=== PATIENT | female | born 1945 | race Caucasian/White ===

== ENCOUNTER 2022-10-13 10:15 | Outpatient (RCR) | payer MEDICARE, SELFPAY | END 2022-12-10 16:31 | disposition home or self-care (01) | LOC: PT 10:15 | DX: I63.9 Cerebral infarction, unspecified (principal) | CPT/HCPCS: 97010; 97110; 97112; 97530 ==

== ENCOUNTER 2022-10-13 10:16 | Outpatient (RCR) | payer MEDICARE, SELFPAY | END 2022-12-10 16:32 | disposition home or self-care (01) | LOC: OT 10:16 | DX: I63.9 Cerebral infarction, unspecified (principal) | CPT/HCPCS: 97530 ==

== ENCOUNTER 2022-12-14 08:12 | Outpatient (OUT) | payer MEDICARE, SELFPAY | END 2022-12-14 08:13 | disposition home or self-care (01) | LOC: LAB 08:15 | PROVIDERS: PCP Family Medicine; Visit Provider Family Medicine | DX: D64.9 Anemia, unspecified (principal) | CPT/HCPCS: 36415; 82728; 83540 ==

== ENCOUNTER 2023-01-17 08:41 | Outpatient (OUT) | payer MEDICARE, SELFPAY ==
[2023-01-17 09:42] LABS: Percent Iron Saturation 14.6 %
== END 2023-01-17 08:42 | disposition home or self-care (01) ==
LOC: LAB 08:43
PROVIDERS: PCP Family Medicine; Visit Provider Family Medicine
DX: D64.9 Anemia, unspecified (principal)
CPT/HCPCS: 36415; 82728; 83540; 83550

== ENCOUNTER 2023-02-08 12:04 | Outpatient (OUT) | payer MEDICARE, SELFPAY ==
[2023-02-08 12:42] LABS: Basophils Percent Auto 0.8 % (0.2-2.0); Eosinophils Absolute Auto 0.1 10^3/uL (0.0-0.7); Eosinophils Percent Auto 2.1 % (0.9-7.0); Hematocrit 38.1 % (36.0-48.0); Hemoglobin 11.9 g/dL (12.0-16.0); Immature Granulocytes Abs Auto 0.01 10^3/uL (0.00-0.03); Immature Granulocytes Pct Auto 0.2 % (0.0-0.5); Lymphocytes Absolute Auto 1.6 10^3/uL (1.2-3.8); Lymphocytes Percent Auto 30.8 % (20.5-60.0); Mean Corpuscular HGB Conc 31.2 g/dL (29.9-35.2); Mean Corpuscular Volume 89.6 fL (81.0-99.0); Mean Platelet Volume 10.3 fL (9.5-13.5); Monocytes Absolute Auto 0.4 10^3/uL (0.3-0.8); Neutrophils Percent Auto 58.1 % (43.0-75.0); Platelet Count 219 10^3/uL (150-450); Red Blood Count 4.25 10^6/uL (4.20-5.40); Red Cell Distribution Width 14.3 % (11.0-15.0); White Blood Count 5.2 10^3/uL (4.0-11.0)
== END 2023-02-08 12:05 | disposition home or self-care (01) ==
LOC: LAB 12:07
PROVIDERS: PCP Family Medicine; Visit Provider Family Medicine
DX: D64.9 Anemia, unspecified (principal); E03.9 Hypothyroidism, unspecified
CPT/HCPCS: 36415; 83550; 84443; 85025

== ENCOUNTER 2025-02-18 15:59 | Outpatient (OUT) | payer MEDICARE, SELFPAY ==
--- OUTSIDE RECORDS SUMMARY | 2025-02-18 16:04 | XMS_ITS | Encounter Summary ---
Author Organization [facility] Address [address] [place] [address] Care Team Providers Care Lead Teacher Name Role Phone Antoni Conner MD Primary Care Provider + [phone] Encounter Details Date Type Department Care Team (Late st Contact Info) Description 08/16/2024 External Result Encounter [facility] External Department Unsolicited Bear Hayes MD 703 [facility] [address] [place] [address] Social History Tobacco Use Types Packs/Day Years Used Date Smoking Tobacco: Never Assessed Comments Unknown Sex and Gender Information Value Date Recorded Sex Assigned at Not on file Legal Sex Female 6:39 PM EDT Gender Identity Not on file Sexual Orientation Not on file documented as of this encounter Plan of Treatment Not on file documented as of this encounter Procedures Procedure Name Priority Date/Time Associated Diagnosis Comments XR ABDOMEN 2 VIEW 08/16/2024 9:1 1 AM EDT documented in this encounter Results * XR ABDOMEN 2 VIEW (08/16/2024 9:11 AM EDT) Anatomical Region Laterality Modality Abdomen Radiographic Martha ging 08/16/2024 9:11 AM EDT Impressions 08/16/2024 9:16 AM EDT AIR-FLUID LEVELS ARE SEEN WITHIN THE RIGHT COLON. NO SMALL BOWEL DILATATION IS SEEN. Impression dictated by: Ismael Mandujano Jr. D.ORichard08/16/2024 9:14 AM Dictation Location: [facility]--23 Transcribed By: CHARLOTTE 08/16/24 0914 Dictated By: Ismael Mandujano Jr, DO 08/16/24 0911 Signed By: <Electronically signed by Ismael Mandujano Jr, DO in OV> 08/16/24 0914 Narrative 08/16/2024 9:16 AM EDT [place] [id number] XRay Report Signed Patient: Kayli Conner MR#: [id number] 865 : 1945 Acct:[id number] Age/Sex: 79 / F ADM Date: 08/14/24 Loc: 4N Room: [address] [place] [address] Type: ADM IN Attending Dr: Maribeth Doll MD Copies to: MD Maribeth Chapa MD Ordering Provider: Bear Hayes MD Date of Service: 08/16/24 XR/XR abdomen min 2V: Bowel obstruction ABDOMEN 2 VIEWS: CLINICAL INFORMATION: Bowel movement today. Abdominal pain. COMPARISON: KUB 08/14/2024 FINDINGS: Enteric tubes in satisfactory position. Nonspecific bowel gas pattern. There appears be air-fluid levels within the presumed right colon. No free air. Osseous structures demonstrate degenerative change. XR/XR abdomen min 2V Procedure Note Ismael Mandujano Jr., MD - 08/16/[address] [address] XRay Report Signed Patient: Kayli Conner MMR#: [id number] 865 : 8Acct:[id number] Age/Sex: 79 / FADM Date: 08/14/24 Loc: 4N Room: [id number]: ADM IN Attending Dr: Maribeth Doll MD Copies to: MD Maribeth Chapa MD Ordering Provider: Bear Hayes MD Date of Service: 08/16/24 XR/XR abdomen min 2V: Bowel obstruction ABDOMEN 2 VIEWS: CLINICAL INFORMATION: Bowel movement today. Abdominal pain. COMPARISON: KUB 08/14/2024 FINDINGS: Enteric tubes in satisfactory position. Nonspecific bowel gaspattern. There appears be air-fluid levels within the presumed right colon. No free air. Osseousstructures demonstrate degenerative change. XR/XR abdomen min 2V IMPRESSION: AIR-FLUID LEVELS ARE SEEN WITHIN THE RIGHT COLON. NO SMALL BOWELDILATATION IS SEEN. Impression dictated by: Ismael Mandujano Jr., D.O.08/16/2024 9:14 AM Dictation Location: [facility]--23 Transcribed By: [facility] 08/16/24 0914 Dictated By: Ismael Mandujano Jr, DO 08/16/24 0911 Signed By: <Electronically signed by Ismael Mandujano Jr, DO inOV> 08/16/24 0914 us Bear Rossi MD IMG XR PROCEDURES Final Resu lt documented in this encounter Visit Diagnoses Not on filedocumented in this encounter Care Teams Lead Teacher Relationship Specialty Start Date End Date Antoni Conner MD [address] [place] [address] PCP - General Family Medicine 12/27/22 documented as of this encounter
--- OUTSIDE RECORDS SUMMARY | 2025-02-18 16:04 | XMS_ITS | Encounter Summary ---
Author Organization [facility] Address [address] [place] [address] Phone Care Team Providers Care Children'S Author Name Role Phone Ubaldo Antoni B DO Primary Care Provider Encounter Details Date Type Department Care Team (Late st Contact Info) Description 12/19/2022 Scanned Document [facility] [[email or web address]] LEGAC[facility] [address] [place] [address] Conversion, Onbase Social History Tobacco Use Types Packs/Day Years Used Date Smoking Tobacco: Never Assessed Comments Unknown Sex and Gender Information Value Date Recorded Sex Assigned at Not on file Legal Sex Female 8:35 PM EST Gender Identity Not on file Sexual Orientation Not on file documented as of this encounter Plan of Treatment Not on file documented as of this encounter Procedures Procedure Name Priority Date/Time Associated Diagnosis Comments ECHOCARDIOGRAM 12/19/2022 documented in this encounter Results * ECHOCARDIOGRAM (12/19/2022) Narrative 12/19/2022 Ordered by an unspecified provider. us Onbase Conversion CV ECHO PROCEDURES Final Resul t documented in this encounter Visit Diagnoses Not on filedocumented in this encounter Care Teams Children'S Author Relationship Specialty Start Date End Date Antoni Conner DO PCP - General 08/20/10 documented as of this encounter
--- OUTSIDE RECORDS SUMMARY | 2025-02-18 16:04 | XMS_ITS | Clinical Summary ---
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 Fecal smearing 05/31/2011 Fecal urgency 05/31/2011 Social History Tobacco Use Types Packs/Day Years Used Date Smoking Tobacco: Never Assessed Comments Unknown Sex and Gender Information Value Date Recorded Sex Assigned at Not on file Legal Sex Female 9:00 AM EST Gender Identity Not on file Sexual Orientation Not on file Plan of Treatment Health Maintenance Due Date Last Done Comments Anxiety Screening 08/08/1965 Depression Screening 08/08/1965 Hepatitis C Screening 08/08/1965 DTaP,Tdap,Td Vaccine (1 - Tdap) 08/08/1966 Diabetes Screening 08/08/1992 Pneumococcal Vaccine: 50+ (1 of 1 - PCV) 08/08/1997 Shingrix Vaccine (1 of 2) 08/08/1997 Bone Density Screening 08/08/2012 RSV Vaccine (1 - 1-dose 75+ series) 08/08/2022 Advance Directive Discussion 05/15/2024 Influenza Vaccine (#1) 2025 Insurance BLUE PREFERRED EPO Member Subscriber Plan / Payer (Ef fective 2010-Present) Name:Kayli Conner Tomas Relation to Subscriber:Self Name:Ubaldo Kayli Marin Payer ID:[id number] (NAIC) Type:EPO Address: [address] [place] [id number] Care Teams Watch And Clock Repair Clerk Relationship Specialty Start Date End Date Saúl Cobos ([facility] [[email or web address] [address] [place] [address] PCP - General 08/21/00
--- OUTSIDE RECORDS SUMMARY | 2025-02-18 16:04 | XMS_ITS | Encounter Summary ---
Author Organization [facility] Address [address] [place] [address] Care Team Providers Care Dairy Manufacturing Technologist Name Role Phone Antoni Conner MD Primary Care Provider + [phone] Encounter Details Date Type Department Care Team (Late st Contact Info) Description 10/01/2023 External Result Encounter [facility] External Department Unsolicited Jose Pathak, DO 703 [facility] [address] [place] [address] Social History Tobacco Use Types [...] Priority Date/Time Associated Diagnosis Comments XR ABDOMEN 1 VIEW 10/01/2023 11: 51 AM EDT documented in this encounter Results * XR abdomen 1 view (10/01/2023 11:51 AM EDT) Anatomical Region Laterality Modality Abdomen Radiographic Martha ging 10/01/2023 11:5 1 AM EDT Impressions 10/01/2023 11:54 AM EDT NG TUBE IN SATISFACTORY POSITION. Impression dictated by: Ismael Mandujano Jr., D.O.10/01/2023 11:52 AM Dictation Location: [facility]-15 Transcribed By: CHARLOTTE 10/01/23 1152 Dictated By: Ismael Mandujano Jr, DO 10/01/23 1151 Signed By: <Electronically signed by Ismael Mandujano Jr, DO in OV> 10/01/23 1152 Narrative 10/01/2023 11:54 AM EDT [place] [id number] XRay Report Signed Patient: Kayli Conner MR#: [id number] 865 : 1945 Acct:[id number] Age/Sex: 78 / F ADM Date: 10/01/23 Loc: 4N Room: [address] [place] [address] Type: ADM IN Attending Dr: Minna Bryan MD Copies to: DO Minna Aguilar MD Ordering Provider: Jose Pathak DO Date of Service: 10/01/23 XR/XR abdomen 1V: Confirm NG placement KUB: CLINICAL INFORMATION: NG tube placement COMPARISON: KUB 10/01/2023 at 0330 hours FINDINGS: Interval advancement the patient's NG tube demonstrates that the tip and the side-port within the stomach. No free air. XR/XR abdomen 1V Procedure Note Radiology, Radiologist, - 10/01/[address] [address] XRay Report Signed Patient: Kayli Conner MMR#: [id number] 865 : 8Acct:[id number] Age/Sex: 78 / FADM Date: 10/01/23 Loc: 4 Room: [id number]: ADM IN Attending Dr: Minna Bryan MD Copies to: DO Minna Aguilar MD Ordering Provider: Jose Pathak DO Date of Service: 10/01/23 XR/XR abdomen 1V: Confirm NG placement KUB: CLINICAL INFORMATION: NG tube placement COMPARISON: KUB 10/01/2023 at 0330 hours FINDINGS: Interval advancement the patient's NG tube demonstrates that thetip and the side-port within the stomach. No free air. XR/XR abdomen 1V IMPRESSION: NG TUBE IN SATISFACTORY POSITION. Impression dictated by: Ismael Mandujano Jr., D.ORichard10/01/2023 11:52 AM Dictation Location: [facility] Transcribed By: [facility] 10/01/23 1152 Dictated By: Ismael Mandujano Jr, DO 10/01/23 1151 Signed By: <Electronically signed by Ismael Mandujano Jr, DO inOV> 10/01/23 1152 Jose Pathak DO IMG XR PROCEDURES Final R esult documented in this encounter Visit Diagnoses Not on filedocumented in this encounter Care Teams Dairy Manufacturing Technologist Relationship Specialty Start Date End Date Antoni Conner MD [address] [place] [address] PCP - General Family Medicine 12/27/22 documented as of this encounter
--- OUTSIDE RECORDS SUMMARY | 2025-02-18 16:04 | XMS_ITS | Encounter Summary ---
Author Organization [facility] Address [address] [place] [address] Care Team Providers Care Process Equipment Operator Name Role Phone Antoni Conner MD Primary Care Provider + [phone] Encounter Details Date Type Department Care Team (Latest Contact Info) Description 06/20/2024 Abstract [facility] EXT DEP Beto Mccabe, DO [address] [address] Social History Tobacco Use Types Packs/Day Years Used Date Smoking Tobacco: Never Assessed Comments Unknown Sex and Gender Information Value Date Recorded Sex Assigned at Not on file Legal Sex Female 6:39 PM EDT Gender Identity Not on file Sexual Orientation Not on file documented as of this encounter Plan of Treatment Not on file documented as of this encounter Visit Diagnoses Not on filedocumented in this encounter Care Teams Process Equipment Operator Relationship Specialty Start Date End Date Antoni Conner MD [address] [place] [address] PCP - General Family Medicine 12/27/22 documented as of this encounter
--- OUTSIDE RECORDS SUMMARY | 2025-02-18 16:04 | XMS_ITS | Clinical Summary ---
Author Organization [facility] Address [address] [place] [address] Phone Care Team Providers Care Finish Mill Operator Name Role Phone Antoni Conner DO Primary Care Provider Social History Tobacco Use Types Packs/Day Years Used Date Smoking Tobacco: Never Assessed Comments Unknown Sex and Gender Information Value Date Recorded Sex Assigned at Not on file Legal Sex Female 8:35 PM EST Gender Identity Not on file Sexual Orientation Not on file Plan of Treatment Health Maintenance Due Date Last Done Comments Lipid Panel 1945 Medicare Annual Wellness Vis it (AWV) 1945 Hepatitis C Screening 08/08/1965 DTaP/Tdap/Td Vaccines (1 - Tdap) 08/08/1969 Pneumococcal Vaccine (1 of 1 - PCV) 08/08/1997 Zoster Vaccines (1 of 2) 08/08/1997 Bone Density Scan 08/08/2012 RSV High Risk: (Elderly (60+ ) or Population) (1 - 1-dose 75+ series) 08/08/2022 COVID-19 Vaccine ( - 2023-2 5 season) 2025 Influenza Vaccine (#1) 2025 HIB Vaccines Aged Out No longer eligi ble based on patient's age to complete this topic HPV Vaccines Aged Out No longer eligi ble based on patient's age to complete this topic Hepatitis A Vaccines Aged Out No long er eligible based on patient's age to complete this topic Hepatitis B Vaccines Aged Out No long er eligible based on patient's age to complete this topic IPV Vaccines Aged Out No longer eligi ble based on patient's age to complete this topic Meningococcal Vaccine Aged Out No sabine darryl eligible based on patient's age to complete this topic Rotavirus Vaccines Aged Out No longer eligible based on patient's age to complete this topic Insurance [address] [place] [id number] [employer] MEDICARE ADVANTAGE Care Teams Finish Mill Operator Relationship Specialty Start Date End Date Antoni Conner DO PCP - General 08/20/10
--- OUTSIDE RECORDS SUMMARY | 2025-02-18 16:04 | XMS_ITS | Encounter Summary ---
Author Organization [facility] Address [address] [place] [address] Care Team Providers Care Whiskey Filterer Name Role Phone Antoni Conner MD Primary Care Provider + [phone] Encounter Details Date Type Department Care Team (Late st Contact Info) Description 06/22/2024 External Result Encounter [facility] External Department Unsolicited Beto Mccabe, DO [address] [facility] [address] [place] [address] Social History Tobacco Use Types Packs/Day Years [...] Associated Diagnosis Comments XR ABDOMEN 1 VIEW 06/22/2024 8:0 6 AM EST documented in this encounter Results * XR abdomen 1 view (06/22/2024 8:06 AM EST) Anatomical Region Laterality Modality Abdomen Radiographic Martha ging 06/22/2024 8:06 AM EST Impressions 06/22/2024 8:09 AM EST No radiographic evidence of bowel obstruction or free air. Impression dictated by: Papito Bai M.D.06/22/2024 8:06 AM Dictation Location: [place] [address] Transcribed By: [facility] 06/22/24805 Dictated By: Papito Bai II, MD 06/22/24805 Signed By: <Electronically signed by Papito Bai II, MD in OV> 06/22/24805 Narrative 06/22/2024 8:09 AM EST [address] [address] XRay Report Signed Patient: Kayli Conner MR#: [id number] 865 : 1945 Acct:[id number] Age/Sex: 78 / F ADM Date: 06/20/24 Loc: 3T Room: [address] [place] [address] Type: ADM IN Attending Dr: Agustina Moya MD Copies to: MD Beto Shaw DO Ordering Provider: Beto Mccabe DO Date of Service: 06/22/24 XR/XR KUB: bowel obstruction. must get by 6:00 am XR KUB 06/21/2024 1:00 PM SIGNS AND SYMPTOMS: bowel obstruction. must get by 6:00 am PROTOCOL: Frontal radiographs of the abdomen and pelvis COMPARISON: 06/20/2024 FINDINGS: There is a nonobstructive bowel gas pattern. An enteric tube is in satisfactory position. No radiographic evidence of free air. Vascular calcifications are present in the pelvis. Degenerative changes are noted in the lumbar spine and sacroiliac joints. XR/XR KUB Procedure Note Papito Bai MD - 06/22/[address] [address] XRay Report Signed Patient: Kayli Conner MMR#: [id number] 865 : 8Acct:[id number] Age/Sex: 78 / FADM Date: 06/20/24 Loc: 3T Room: [id number]: ADM IN Attending Dr: Agustina Moya MD Copies to: MD Beto Shaw DO Ordering Provider: Beto Mccabe DO Date of Service: 06/22/24 XR/XR KUB: bowel obstruction. must get by 6:00am XR KUB 06/21/2024 1:00 PM SIGNS AND SYMPTOMS: bowel obstruction. must get by 6:00 am PROTOCOL: Frontal radiographs of the abdomen and pelvis COMPARISON: 06/20/2024 FINDINGS: There is a nonobstructive bowel gas pattern. An enteric tube is insatisfactory position. No radiographic evidence of free air. Vascular calcifications are present inthe pelvis. Degenerative changes are noted in the lumbar spine and sacroiliac joints. XR/XR KUB IMPRESSION: No radiographic evidence of bowel obstruction or free air. Impression dictated by: Papito Bai M.D.06/22/2024 8:06 AM Dictation Location: [place] [address] Transcribed By: [facility] 06/22/24 0806 Dictated By: Papito Bai II, MD 06/22/24 08 Signed By: <Electronically signed by Papito Bai II, MD inOV> 06/22/24 0806 Beto Mccabe DO IMG XR PROCEDURES Final Result documented in this encounter Visit Diagnoses Not on filedocumented in this encounter Care Teams Whiskey Filterer Relationship Specialty Start Date End Date Antoni Conner MD [address] [place] [address] PCP - General Family Medicine 12/27/22 documented as of this encounter
--- OUTSIDE RECORDS SUMMARY | 2025-02-18 16:04 | XMS_ITS | Encounter Summary ---
Author Organization [facility] Address [address] [place] [address] Phone Care Team Providers Care Audit Practice Intern Name Role Phone Antoni Conner DO Primary Care Provider +[phone] Encounter Details Date Type Department Care Team (Late st Contact Info) Description 09/14/2023 Orders Only [facility] [address] [place] [id number] Scanning, Generic Provider Social History Tobacco Use Types Packs/Day [...] Procedure Name Priority Date/Time Associated Diagnosis Comments HOLTER AND CARDIAC EVENT MONITOR - ONBASE SCAN 09/14/2023 documented in this encounter Results * Holter and Cardiac Event Monitor - Onbase Scan (09/14/2023) Narrative 09/14/2023 Ordered by an unspecified provider. us Generic Provider Scanning CV CARDIAC SERVICES CO OCEDURES Final Result documented in this encounter Visit Diagnoses Not on filedocumented in this encounter Care Teams Audit Practice Intern Relationship Specialty Start Date End Date Antoni Conner DO PCP - General 08/20/10 documented as of this encounter
--- OUTSIDE RECORDS SUMMARY | 2025-02-18 16:04 | XMS_ITS | Clinical Summary ---
Author Organization [facility] Address [address] [place] [address] Care Team Providers Care Flat Folder Name Role Phone Antoni Conner MD Primary Care Provider [phone] Social History Tobacco Use Types Packs/Day Years Used Date Smoking Tobacco: Never Assessed Comments Unknown Sex and Gender Information Value Date Recorded Sex Assigned at Not on file Legal Sex Female 6:39 PM EDT Gender Identity Not on file Sexual Orientation Not on file Last Filed Vital Signs Vital Sign Reading Time Taken Comments Blood Pressure 127/67 08/16/2018 12:00 PM EDT Pulse - - Temperature - - Respiratory Rate - - Oxygen Saturation - - Inhaled Oxygen Concentration - - Weight 78.5 kg (173 lb) 09/18/2020 12:00 PM EDT Height 162.6 cm (5' 4 ) 09/18/2020 12:00 PM EDT Body Mass Index 29.7 09/18/2020 12:00 PM EDT Plan of Treatment Not on file Insurance [facility] MEDICARE ADVANTAGE Care Teams Flat Folder Relationship Specialty Start Date End Date Antoni Conner MD [address] [place] [address] PCP - General Family Medicine 12/27/22
--- OUTSIDE RECORDS SUMMARY | 2025-02-18 16:04 | XMS_ITS | Encounter Summary ---
Author Organization [facility] Address [address] [place] [address] Care Team Providers Care Graffiti Cleaner Name Role Phone Antoni Conner MD Primary Care Provider + [phone] Encounter Details Date Type Department Care Team (Late st Contact Info) Description 10/02/2023 External Result Encounter [facility] External Department Unsolicited Jose Pathak H, DO 703 [facility] [address] [place] [address] Social History Tobacco Use Types [...] Associated Diagnosis Comments XR ABDOMEN 2 VIEW 10/02/2023 8:2 2 AM EDT documented in this encounter Results * XR ABDOMEN 2 VIEW (10/02/2023 8:22 AM EDT) Anatomical Region Laterality Modality Abdomen Radiographic Martha ging 10/02/2023 8:22 AM EDT Impressions 10/02/2023 8:26 AM EDT No radiographic evidence of bowel obstruction or free air. Satisfactory positioning of enteric tube. Impression dictated by: Papito Bai M.D.10/02/2023 8:24 AM Dictation Location: [place] [address] Transcribed By: CHARLOTTE 10/02/23823 Dictated By: Papito Bai II, MD 10/02/23821 Signed By: <Electronically signed by Papito Bai II, MD in OV> 10/02/23823 Narrative 10/02/2023 8:26 AM EDT [facility] Main [address] [address] XRay Report Signed Patient: Kayli Conner MR#: [id number] 865 : 1945 Acct:[id number] Age/Sex: 78 / F ADM Date: 10/01/23 Loc: 4N Room: [address] [place] [address] Type: ADM IN Attending Dr: Minna Bryan MD Copies to: DO Minna Aguilar MD Ordering Provider: Jose Pathak DO Date of Service: 10/02/23 XR/XR abdomen min 2V: SBO XR abdomen min 2V 10/01/2023 1:00 PM SIGNS AND SYMPTOMS: S.br SBO PROTOCOL: Frontal radiographs of the abdomen and pelvis COMPARISON: 10/01/2023 FINDINGS: The enteric tube tip is in satisfactory position. There is a nonobstructive bowel gas pattern. Stool and bowel gas reaches the rectum. There is evidence of prior cholecystectomy tear. Degenerative changes are noted in the thoracolumbar spine and sacroiliac joints. XR/XR abdomen min 2V Procedure Note Radiology, Radiologist, MD - 10/02/2023 [facility] Main [address] [address] XRay Report Signed Patient: Kayli Conner MMR#: [id number] 865 : 8Acct:[id number] Age/Sex: 78 / FADM Date: 10/01/23 Loc: 4N Room: [id number]: ADM IN Attending Dr: Minna Bryan MD Copies to: DO Minna Aguilar MD Ordering Provider: Jose Pathak DO Date of Service: 10/02/23 XR/XR abdomen min 2V: SBO XR abdomen min 2V 10/01/2023 1:00 PM SIGNS AND SYMPTOMS: S.br SBO PROTOCOL: Frontal radiographs of the abdomen and pelvis COMPARISON: 10/01/2023 FINDINGS: The enteric tube tip is in satisfactory position. There is anonobstructive bowel gas pattern. Stool and bowel gas reaches the rectum. There is evidence of priorcholecystectomy tear. Degenerative changes are noted in the thoracolumbar spine and sacroiliac joints. XR/XR abdomen min 2V IMPRESSION: No radiographic evidence of bowel obstruction or free air. Satisfactory positioning of enteric tube. Impression dictated by: Papito Bai M.D.10/02/2023 8:24 AM Dictation Location: [place] [address] Transcribed By: [facility] 10/02/23 0824 Dictated By: Papito Bai II, MD 10/02/23 0822 Signed By: <Electronically signed by Papito Bai II, MD inOV> 10/02/23 0824 Jose Pathak DO IMG XR PROCEDURES Final R esult documented in this encounter Visit Diagnoses Not on filedocumented in this encounter Care Teams Graffiti Cleaner Relationship Specialty Start Date End Date Antoni Conner MD [address] [place] [address] PCP - General Family Medicine 12/27/22 documented as of this encounter
--- OUTSIDE RECORDS SUMMARY | 2025-02-18 16:04 | XMS_ITS | Encounter Summary ---
Author Organization [facility] Address [address] [place] [address] Care Team Providers Care Carton Lettering Machine Operator Name Role Phone Antoni Conner MD Primary Care Provider [phone] Encounter Details Date Type Department Care Team (Late st Contact Info) Description 12/19/2022 Abstract [facility] [address] [address] Bear Hayes MD [address] [address] Social History Tobacco Use Types Packs/Day Years [...] on filedocumented in this encounter Care Teams Carton Lettering Machine Operator Relationship Specialty Start Date End Date Antoni Conner MD [address] [place] [address] PCP - General Family Medicine 12/27/22 documented as of this encounter
[2025-02-18 17:11] LABS: Iron 80.0 ug/dL (50.0-170.0); Percent Iron Saturation 30.4 %; Total Iron Binding Capacity 263.0 ug/dL (250.0-450.0)
[2025-02-18 17:55] LABS: Ferritin 136.0 ng/mL (8.0-252.0)
[2025-02-18 20:11] LABS: Hematocrit 39.0 % (36.0-48.0); Hemoglobin 13.2 g/dL (12.0-16.0); Immature Granulocytes Abs Auto 0.01 10^3/uL (0.00-0.03); Immature Granulocytes Pct Auto 0.2 % (0.0-0.5); Lymphocytes Absolute Auto 1.8 10^3/uL (1.2-3.8); Mean Corpuscular HGB Conc 33.8 g/dL (29.9-35.2); Mean Corpuscular Hemoglobin 31.6 pg (26.7-34.0); Mean Corpuscular Volume 93.3 fL (81.0-99.0); Platelet Count 181 10^3/uL (150-450); Red Blood Count 4.18 10^6/uL (4.20-5.40); White Blood Count 5.5 10^3/uL (4.0-11.0)
[2025-02-20 04:09] LABS: Vitamin B12 616 pg/mL (232-1245)
== END 2025-02-18 16:00 | disposition home or self-care (01) ==
PROVIDERS: PCP Family Medicine; Visit Provider Internal Medicine
DX: D50.9 Iron deficiency anemia, unspecified (principal)
CPT/HCPCS: 36415; 82607; 82728; 82746; 83540; 83550; 85025